=== PATIENT | female | born 1985 | race Caucasian/White ===

== ENCOUNTER → 2019-05-23 | Outpatient (CLI) | payer OTHER | END | disposition home or self-care (01) | LOC: TOM 08:21 | DX: N39.0 Urinary tract infection, site not specified (principal); R31.0 Gross hematuria; N28.89 Other specified disorders of kidney and ureter; N20.2 Calculus of kidney with calculus of ureter; M54.5 Low back pain ==

== ENCOUNTER → 2019-05-23 | Outpatient (CLI) | payer OTHER | END | disposition home or self-care (01) | LOC: LAB 08:48 | DX: N20.0 Calculus of kidney (principal) ==